=== PATIENT | male | born 1970 | race American Indian/Alaskan Native ===

== ENCOUNTER 2022-09-30 08:51 | Emergency (ER) | payer OTHER ==
[~2022-09-30] VITALS: Ht 167.6 cm; Wt 81.6 kg
[2022-09-30 08:56] VITALS: BP 133/84; TEMP 99.1
== END 2022-09-30 09:40 | disposition home or self-care (01) ==
LOC: ED 08:51
DX: D16.7 Benign neoplasm of ribs, sternum and clavicle (principal)
CPT/HCPCS: 99282